=== PATIENT | male | born 1995 | race Caucasian/White ===

== ENCOUNTER 2023-05-27 13:43 | Outpatient (CLI) | payer OTHER, SELFPAY ==
--- NOTE | 2023-05-27 14:07 | XRR_ITS ---
PROCEDURE INFORMATION: Exam: XR Left Elbow Exam date and time: 05/27/2023 2:08 PM Age: 28 years old Clinical indication: Pain and injury or trauma; Swelling (edema) and wound; Injury details: Left elbow pain post pinning injury; Large abrasion to medial side of left elbow; Open laceration to area olecrenon process TECHNIQUE: Imaging protocol: Radiologic exam of the left elbow. Views: 3 or more views. COMPARISON: No relevant prior studies available. FINDINGS: Bones/joints: No acute fracture or dislocation. No elbow joint effusion. Soft tissues: Superficial soft tissues demonstrate swelling and edema about the dorsal medial aspect of the elbow. XR/XR elbow LT min 3V* [id number] IMPRESSION: 1. No acute fracture or dislocation. 2. Superficial soft tissue swelling and edema about the dorsal medial aspect of the elbow.
== END 2023-05-27 13:44 | disposition home or self-care (01) ==
PROVIDERS: PCP Nurse Practitioner Family; Visit Provider Nurse Practitioner Family
DX: M25.522 Pain in left elbow (principal); R60.0 Localized edema; R22.32 Localized swelling, mass and lump, left upper limb
CPT/HCPCS: 73080